=== PATIENT | female | born 1960 | race African-American/Black ===

== ENCOUNTER 2019-04-07 11:27 | Emergency (ER) | payer MEDICAID, OTHER ==
[~2019-04-07] VITALS: Ht 162.6 cm; Wt 81.6 kg
--- NOTE | 2019-04-07 12:03 | PHYS DOC ---
Past History Past Medical History: Diabetes, Hypertension, Other Additional Past Medical Histor: FIBRO Past Surgical History: No Surgical History Alcohol Use: None Drug Use: None Adult General Chief Complaint Chief Complaint: SKIN PROBLEM HPI HPI 58-year-old female presents with wound of the right thumb. She tells me that she does had a blister pop up one week ago. It was full of fluid so she popped a couple days later. She now has 0.5 cm x 0.5 cm oval-shaped ulceration with surrounding white skin surrounded by normal skin. The patient denies burning herself. She denies trauma. She has no idea what happened. She does admit to be staying with a person who has "meth everywhere". She denies any use of drugs. It is not painful. It is not bleeding. Patient has type 2 diabetes. She has no other complaints at this time. Review of Systems Review of Systems Constitutional: Denies fever or chills [] Eyes: Denies change in visual acuity, redness, or eye pain [] HENT: Denies nasal congestion or sore throat [] Respiratory: Denies cough or shortness of breath [] Cardiovascular: No additional information not addressed in HPI [] GI: Denies abdominal pain, nausea, vomiting, bloody stools or diarrhea [] : Denies dysuria or hematuria [] Musculoskeletal: Denies back pain or joint pain [] Integument: Skin lesion[] Neurologic: Denies headache, focal weakness or sensory changes [] Endocrine: Denies polyuria or polydipsia [] All other systems were reviewed and found to be within normal limits, except as documented in this note. Allergies Allergies Allergies Coded Allergies Type Severity Reaction Last Updated Verified Quinolones Allergy Unknown 05/12/14 No Sulfa (Sulfonamide Antibiotics) Allergy Unknown 05/12/14 No aspirin Allergy Unknown 05/12/14 No ciprofloxacin Allergy Unknown 05/12/14 No Physical Exam Physical Exam Constitutional: Well developed, well nourished, no acute distress, non-toxic appearance. [] HENT: Normocephalic, atraumatic, bilateral external ears normal, oropharynx moist, no oral exudates, nose normal. [] Eyes: PERRLA, EOMI, conjunctiva normal, no discharge. [] Neck: Normal range of motion, no tenderness, supple, no stridor. [] Cardiovascular:Heart rate regular rhythm, no murmur [] Lungs & Thorax: Bilateral breath sounds clear to auscultation [] Abdomen: Bowel sounds normal, soft, no tenderness, no masses, no pulsatile masses. [] Skin: Right thumb with a 0.5 cm x 1.5 cm area of skin missing. Wound has a pink center that is surrounded by white around most the more surrounded by normal- looking skin. It appears consistent with a thermal burn. No current sign of infection[] Back: No tenderness, no CVA tenderness. [] Extremities: No tenderness, no cyanosis, no clubbing, ROM intact, no edema. [] Neurologic: Alert and oriented X 3, normal motor function, normal sensory function, no focal deficits noted. [] Psychologic: Affect normal, judgement normal, mood normal. [] Current Patient Data Vital Signs Vital Signs Date Time Temp Pulse Resp B/P (MAP) Pulse Ox O2 Delivery O2 Flow Rate FiO2 04/07/19 11:43 98.3 92 18 98 Room Air EKG EKG [] Radiology/Procedures Radiology/Procedures [] Course & Med Decision Making Course & Med Decision Making Pertinent Labs and Imaging studies reviewed. (See chart for details) The patient's wound appears consistent with a thermal burn that is healing. There is no evidence of current infection. I advised patient to keep it clean and covered while it heals. She is stable for discharge at this time. [] Dragon Disclaimer Dragon Disclaimer This electronic medical record was generated, in whole or in part, using a voice recognition dictation system. Departure Departure: Impression: Primary Impression: Skin ulceration Disposition: HOME, SELF-CARE Condition: STABLE Referrals: NON,STAFF (PCP) Patient Instructions: Skin Ulcer Problem Qualifiers Primary Impression: Skin ulceration Non-pressure ulcer stage: with fat layer exposed Qualified Codes: L98.492 - Non-pressure chronic ulcer of skin of other sites with fat layer exposed COLLIN FAIR DO Apr 07, 2019 12:03
[2019-04-07] MEDS ORDERED: BACITRACIN ZINC TOPICAL OINT PACKET. TP ONE ×2 (12:57→13:15)
[2019-04-07 13:05] VITALS: BP 124/51
== END 2019-04-07 13:00 | disposition home or self-care (01) ==
LOC: ER 11:27
DX: L98.492 Non-pressure chronic ulcer of skin of other sites with fat layer exposed (principal); E11.9 Type 2 diabetes mellitus without complications; I10 Essential (primary) hypertension; M79.7 Fibromyalgia; Z88.2 Allergy status to sulfonamides; Z88.6 Allergy status to analgesic agent; Z88.1 Allergy status to other antibiotic agents; Z88.8 Allergy status to other drugs, medicaments and biological substances
CPT/HCPCS: 99283